=== PATIENT | female | born 1950 | race Caucasian/White ===

== ENCOUNTER → 2024-07-19 10:09 | Emergency (ER) | payer MEDICARE, OTHER, SELFPAY ==
[2024-07-19 10:37] VITALS: BP 149/79
--- NOTE | 2024-07-19 10:37 | ED.GENMED ---
ED Provider Triage
<Mando Braden PA-C - Last Filed: 07/19/24 10:40>
-
Patient seen by provider in Triage?: Seen in Triage
Attestation: A medical screening examination has been initiated by a qualified medical provider. Based on the assessment performed at this time, it has been determined that an emergent medical condition may exist and the patient has been informed
that further medical evaluation and possible additional diagnostic testing may be needed.
HPI: Accidental fall last night from chair with resulting LUE injury. Patient with ecchymosis to left elbow and humeral region. Takes 81mg ASA. No other injuries. Vomited x 1 last night but denies headache/visual changes.
GENERAL: Alert , in no apparent distress
EYE: No visual abnormalities.
NECK: Trachea midline
ENT: No visible abnormalities.
LUNGS: No acute respiratory distress
NEUROLOGICAL: Alert and oriented
SKIN: Skin intact. No visible changes.
MUSCULOSKELETAL: Moving extremities normally
PSYCH: Normal and appropriate interaction.
This is a medical evaluation conducted in person to initiate diagnostic evaluation and provide initial therapeutics. Please see further documentation by the treating clinician.
History of Present Illness
<Mando Braden PA-C - Last Filed: 07/19/24 10:40>
General
Chief Complaint: Fall
Time Seen by Provider: 07/19/24 12:07
<Mauricio Whitlock MD - Last Filed: 07/19/24 13:07>
General
Source: patient
Exam Limitations: none
History of Present Illness
History of Present Illness:
73-year-old female fell last night injuring her left arm. Unsure how she fell onto. No other specific complaint. Did hit her buttock but does not really hurt. Also hit her leg but does not hurt. Only complaining of left arm pain
Past History
<Mauricio Whitlock MD - Last Filed: 07/19/24 13:07>
Past History
ED Past Medical History: HTN and Other (Arthritis)
Review of Systems
<Mauricio Whitlock MD - Last Filed: 07/19/24 13:07>
Review of Systems
All Other Systems: Not applicable
Respiratory: Reports no symptoms
Cardiac: Reports no symptoms
Neurological: Reports no symptoms
Phy Exam
<Mauricio Whitlock MD - Last Filed: 07/19/24 13:07>
Physical Exam
Physical Exam:
TRAUMA EXAM:
VITAL SIGNS: Vital signs reviewed, cooperative
DISTRESS: No active disease
EYES: Pupils reactive, no orbital trauma
NOSE: No deformity or epistaxis
FACE AND SCALP: No scalp or facial trauma
NECK: Supple nontender
RESPIRATORY: No distress, breath sounds normal, no tender chest wall
CARDIAC: No murmur, pulses equal and strong
ABDOMEN: Soft nontender bowel sounds normal
SKIN: Large area of ecchymosis to the left upper posterior arm
EXTREMITIES: Tender hematoma left posterior arm with significant ecchymosis extending along the dorsal aspect of the humerus. However flexion extension at the elbow good. No obvious tenderness deformity. Forearm normal. Wrist normal. Able to
abduct the shoulder without difficulty. No clavicle tenderness.
NEUROLOGICAL: Alert, oriented, no motor deficits
PSYCH: Mood affect normal
Course
<Mando Braden PA-C - Last Filed: 07/19/24 10:40>
Orders/Labs/Results
Orders:
Orders
07/19/24 10:39
CR Elbow - Left Min 3 Views Urgent
Comment:
Reason For Exam: fall, pain, ecchymosis
CR Humerus - Left Min 2 Views* Urgent
Comment:
Reason For Exam: fall, ecchymosis
Vital Signs
Initial and Last Documented VS:
Initial Vital Signs
Temp Pulse Resp BP Pulse Ox
98.4 F 73 16 149/79 98
07/19/24 10:37 07/19/24 10:37 07/19/24 10:37 07/19/24 10:37 07/19/24 10:37
Last Documented Vital Signs
Temp Pulse Resp BP Pulse Ox
98.4 F 73 16 149/79 98
07/19/24 10:37 07/19/24 10:37 07/19/24 10:37 07/19/24 10:37 07/19/24 10:37
<Mauricio Whitlock MD - Last Filed: 07/19/24 13:07>
Orders/Labs/Results
Orders:
Orders
07/19/24 10:39
CR Elbow - Left Min 3 Views Urgent
Comment:
Reason For Exam: fall, pain, ecchymosis
CR Humerus - Left Min 2 Views* Urgent
Comment:
Reason For Exam: fall, ecchymosis
Vital Signs
Initial and Last Documented VS:
Initial Vital Signs
Temp Pulse Resp BP Pulse Ox
98.4 F 73 16 149/79 98
07/19/24 10:37 07/19/24 10:37 07/19/24 10:37 07/19/24 10:37 07/19/24 10:37
Last Documented Vital Signs
Temp Pulse Resp BP Pulse Ox
98.4 F 73 16 149/79 98
07/19/24 10:37 07/19/24 10:37 07/19/24 10:37 07/19/24 10:37 07/19/24 10:37
<Mauricio Whitlock MD - Last Filed: 07/19/24 13:07>
*Radiology
Radiology exam reviewed: preliminary read by ED provider (Negative)
*Pulse Oximetry
Patient hypoxic: no
*Critical Care Note
Total Time (30-74mins, 75-104mins- exclusive of procedures): Not Applicable
<Mauricio Whitlock MD - Last Filed: 07/19/24 13:07>
Update Note
Update Note:
Arm was rechecked. There does not appear to be any tendinous injury or ruptured muscle clinically. As for the vomiting she vomited once last night but she has had no nausea or vomiting since. She was rechecked and is neurologically stable with no
head injury. No indication for CT scan. Discharged to follow-up
ED Attending Note
<Mando Braden PA-C - Last Filed: 07/19/24 10:40>
-
Portions of this chart may have been created with voice recognition software.� Occasional wrong word or��sound alike� substitutions may have occurred due to the inherent limitations of voice recognition software.
Discharge Plan
Departure
Patient Disposition: Home (Routine Discharge)
Date of Disposition: 07/19/24
Time of Disposition: 13:06
Patient with high blood pressure during this ER visit?: Yes
Discharge Problem:
Left arm contusion/hematoma
Instructions: Contusion (DC), BLOOD PRESSURE, Hematoma
Referrals:
Lisa Abarca MD [Family Provider] - Follow up in 2-3 days
Olman Mcdowell MD [Active] - Follow up in 5-7 days
Activity Restrictions/Additional Instructions:
Follow-up with your primary physician or orthopedics
Return with any unusual symptoms including recurring vomiting headache numbness tingling weakness or any other concerning symptoms
Interventions
Interventions:
*Risk Screen - Suicide Last Done: 07/19/24 10:37
*Neglect/Abuse Screening Last Done: 07/19/24 10:37
Discharge Date and Time
Print Language: SLOVAK
== END | disposition home or self-care (01) ==
LOC: EMR 10:09
PROVIDERS: EMERGENCY PHYSICIAN Emergency Medicine; FAMILY PHYSICIAN Family Medicine
DX: S40.022A Contusion of left upper arm, initial encounter (principal); R11.10 Vomiting, unspecified; W19.XXXA Unspecified fall, initial encounter; I10 Essential (primary) hypertension; M19.90 Unspecified osteoarthritis, unspecified site; Z88.0 Allergy status to penicillin; Z88.2 Allergy status to sulfonamides; Z91.041 Radiographic dye allergy status
CPT/HCPCS: 99283; 73060; 73080